=== PATIENT | female | born 2000 | race Caucasian/White ===

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

== ENCOUNTER 2022-09-22 16:54 | Emergency (ER) | payer MEDICAID ==
[2022-09-22] MEDS ORDERED: Ketorolac 60 MG/2 ML SDV IM ONE (17:28)
[2022-09-22 18:01] LABS: BASOPHILS ABSOLUTE AUTO 0.02 K/mm3 (0.01-0.08); BASOPHILS PERCENT AUTO 0.1 % (0.1-1.2); EOSINOPHILS ABSOLUTE AUTO 0.13 K/mm3 (0.04-0.36); HEMATOCRIT 40.7 % (34.1-44.9); HEMOGLOBIN 13.1 gm/dl (11.2-15.7); IMMATURE GRAN ABSOLUTE AUTO 0.03 K/mm3 (0.00-0.10); IMMATURE GRAN PERCENT AUTO 0.2 % (<=1.0); LYMPHOCYTES ABSOLUTE AUTO 2.71 K/mm3 (1.18-3.74); LYMPHOCYTES PERCENT AUTO 20.2 % (19.3-51.7); MEAN CORPUSCULAR HEMOGLOBIN 30.6 pg (25.6-32.2); MEAN CORPUSCULAR HGB CONC 32.2 g/dl (32.2-35.5); MEAN CORPUSCULAR VOLUME 95.1 fl (79.4-94.8); MEAN PLATELET VOLUME 8.2 fl (9.4-12.3); MONOCYTES ABSOLUTE AUTO 1.15 K/mm3 (0.24-0.36); MONOCYTES PERCENT AUTO 8.6 % (4.7-12.5); NEUTROPHILS ABSOLUTE AUTO 9.36 K/mm3 (1.56-6.13); NEUTROPHILS PERCENT AUTO 69.9 % (34.0-71.1); PLATELET COUNT,PLT 410 K/mm3 (182-369); RED BLOOD CELL COUNT 4.28 M/mm3 (3.98-5.22)
[2022-09-22 18:40] LABS: A/G RATIO 1.1 (1-2); ALBUMIN 3.9 g/dl (3.4-5.0); ANION GAP 15.2 (5-15); BILIRUBIN TOTAL 0.3 mg/dL (0.2-1.0); BUN/CREATININE RATIO 12.2 (14-18); C-REACTIVE PROTEIN 1.4 mg/dL (<1.0); CALCIUM 9.1 mg/dL (8.5-10.1); CREATININE 0.9 mg/dL (0.55-1.02); EST CRCL DRUG DOSING (CG) 91.79 mL/min; POTASSIUM,K 4.2 mEq/L (3.5-5.1); PROTEIN TOTAL,TP 7.5 g/dl (6.4-8.2)
[2022-09-22 18:48] VITALS: BP 138/75; PULSE 98
== END 2022-09-22 18:45 | disposition home or self-care (01) ==
LOC: JD.ED 16:54
DX: H60.392 Other infective otitis externa, left ear (principal)
CPT/HCPCS: 36415; 70480; 80053; 85025; 86140; 96372; 99284; J1885; 70482-26; 99283

== ENCOUNTER 2022-09-30 20:39 | Emergency (ER) | payer MEDICAID ==
[2022-09-30 22:12] VITALS: BP 122/78; PULSE 86
== END 2022-09-30 22:03 | disposition home or self-care (01) ==
LOC: JD.ED 20:39
DX: H60.392 Other infective otitis externa, left ear (principal); J33.9 Nasal polyp, unspecified
CPT/HCPCS: 99282; 99283

== ENCOUNTER 2023-05-19 17:57 | Emergency (ER) | payer MEDICAID ==
[2023-05-19 20:17] LABS: BARBITURATE SCREEN,URINE NEGATIVE (CUTOFF=200); BENZODIAZEPINES SCREEN,URINE NEGATIVE (CUTOFF=150); BUPRENORPHINE SCREEN,URINE NEGATIVE (CUTOFF=10); METHADONE SCREEN, URINE NEGATIVE (CUTOFF=200); METHAMPHETAMINES SCREEN, URINE NEGATIVE (CUTOFF=500); OXYCODONE SCREEN,URINE NEGATIVE (CUT0FF=100); THC SCREEN,URINE 20 NG/ML NEGATIVE (CUTOFF=50)
[2023-05-19 20:21] LABS: AMPHETAMINES SCREEN, URINE NEGATIVE (CUTOFF=500)
[2023-05-19 23:08] VITALS: BP 121/78; PULSE 80
== END 2023-05-19 23:10 | disposition home or self-care (01) ==
LOC: EEVIPCON 17:57 → JD.ED 17:57
DX: T76.21XA Adult sexual abuse, suspected, initial encounter (principal); B34.9 Viral infection, unspecified
CPT/HCPCS: 80306; 99284

== ENCOUNTER 2023-10-02 18:16 | Emergency (ER) | payer MEDICAID, OTHER ==
[2023-10-02] MEDS: Acetaminophen 325 MG Tab PO ONE (20:18)
[2023-10-02] MEDS: Sodium Chloride 0.9% 1,000 ML IV ONE (20:19)
[2023-10-02] MEDS: Ondansetron 4 MG/2 ML SDV IVPUSH ONE (20:19)
[2023-10-02 20:28] LABS: BASOPHILS PERCENT AUTO 0.3 % (0.0-1.0); EOSINOPHILS ABSOLUTE AUTO 0.1 K/mm3 (0.0-0.4); HEMATOCRIT 40.1 % (37.0-47.0); HEMOGLOBIN 13.2 gm/dl (12.0-16.0); IMMATURE GRAN ABSOLUTE AUTO 0.04 K/mm3 (0.00-0.05); IMMATURE GRAN PERCENT AUTO 0.4 % (0.0-0.4); LYMPHOCYTES ABSOLUTE AUTO 3.3 K/mm3 (1.0-4.8); LYMPHOCYTES PERCENT AUTO 30.6 % (24.0-44.0); MEAN CORPUSCULAR HEMOGLOBIN 31.4 pg (28.0-32.0); MEAN CORPUSCULAR HGB CONC 32.9 g/dl (32.0-36.0); MEAN CORPUSCULAR VOLUME 95.5 fl (83.0-99.0); MEAN PLATELET VOLUME 8.4 fl (9.4-12.3); MONOCYTES ABSOLUTE AUTO 0.6 K/mm3 (0.0-0.8); NEUTROPHILS ABSOLUTE AUTO 6.6 K/mm3 (1.8-7.7); NEUTROPHILS PERCENT AUTO 61.7 % (41.0-71.0); PLATELET COUNT,PLT 303 K/mm3 (150-400); WHITE BLOOD CELL COUNT,WBC 10.67 K/mm3 (3.9-11.3)
[2023-10-02 20:52] LABS: A/G RATIO 1.3 (1-2); ALBUMIN 4.1 g/dl (3.4-5.0); ANION GAP 12.5 (5-15); BILIRUBIN TOTAL 0.4 mg/dL (0.2-1.0); BUN/CREATININE RATIO 11.3 (14-18); CALCIUM 9.3 mg/dL (8.5-10.1); CREATININE 0.8 mg/dL (0.55-1.02); EST CRCL DRUG DOSING (CG) 90.47 mL/min; POTASSIUM,K 3.5 mEq/L (3.5-5.1); PROTEIN TOTAL,TP 7.2 g/dl (6.4-8.2)
[2023-10-02 21:56] VITALS: BP 137/94; PULSE 77
== END 2023-10-02 21:30 | disposition home or self-care (01) ==
LOC: JD.ED 18:16
DX: S06.0X0A Concussion without loss of consciousness, initial encounter (principal); W01.0XXA Fall on same level from slipping, tripping and stumbling without subsequent striking against object, initial encounter
CPT/HCPCS: 36415; 80053; 84703; 85025; 96361; 96374; 99284; A9270; J2405; J7030

== ENCOUNTER 2024-07-13 17:17 | Emergency (ER) | payer SELFPAY ==
[2024-07-13 17:37] VITALS: BP 157/99; PULSE 99
== END 2024-07-13 18:26 | disposition home or self-care (01) ==
LOC: JD.ED 17:17
DX: F41.0 Panic disorder [episodic paroxysmal anxiety] (principal); Z79.899 Other long term (current) drug therapy
CPT/HCPCS: 99283